=== PATIENT | male | born 1995 ===

== ENCOUNTER 2019-01-21 18:42 | Emergency (ER) ==
--- NOTE | 2019-01-21 22:01 | EKG REPORT ---
SEVERITY:- NORMAL ECG - SINUS RHYTHM : Confirmed by: Ady Valentin MD 21-Jan-2019 22:01:06
--- NOTE | 2019-01-21 22:02 | EKG REPORT ---
SEVERITY:- NORMAL ECG - SINUS RHYTHM : Confirmed by: Ady Valentin MD 21-Jan-2019 22:01:44
== END 2019-01-21 23:23 | disposition left against medical advice (07) ==
LOC: ER 18:42
DX: Z53.21 Procedure and treatment not carried out due to patient leaving prior to being seen by health care provider (principal)
CPT/HCPCS: 93005; 93010